=== PATIENT | female | born 1970 | race Caucasian/White ===

== ENCOUNTER → 2021-12-05 07:50 | Outpatient (CLI) | payer OTHER, SELFPAY ==
--- NOTE | 2021-12-05 07:56 | DI.ECHO.S_ITS ---
[facility] +---------+ : : [address] : [address] [place] : : : : [id number] : : : : Phone: [phone]+ Echocardiogram Report + + :Name: GER ALLEN Study Date: 12/05/2021 Height: 71.5 in: :[facility] ReadingLocation: Weight: 450 lb : : Gender: Female BSA: 3.0 m2 : :: 1970 Age: 51 yrs : :Reason For Study: SOB : :Ordering Physician: : :NOEL Performed By: Justino Morley : :Referring: ZAINAB QUIJANO : + + Interpretation Summary The ejection fraction is estimated to be 55-60%. Diastolic parameters suggest probable normal left ventricular diastolic function and normal filling pressures. The right ventricle is normal in size and function. No significant valvular abnormalities. Unable to estimate PASP. Procedure: A two-dimensional transthoracic echocardiogram with color flow and Doppler was performed. The study quality was technically difficult. The subcostal views were not obtained due to no window. The apical views were difficult to obtain and are suboptimal in quality. There is no prior echocardiogram noted for this patient. A contrast injection of Definity was performed to improve assessment of LV function. The patient was in normal sinus rhythm during the exam. Left Ventricle: The left ventricle is normal in size and wall thickness. The ejection fraction is estimated to be 55-60%. Diastolic parameters suggest probable normal left ventricular diastolic function and normal filling pressures. Right Ventricle: The right ventricle is normal in size and function. Atria: The left atrium is not well visualized. The left atrium grossly appears normal in size. Right atrium not well visualized. Mitral Valve: The mitral valve is normal. There is trace mitral regurgitation. Aortic Valve: The aortic valve opens well. There is no aortic valve stenosis. No aortic regurgitation is present. Tricuspid Valve: The tricuspid valve is not well visualized, but is grossly normal. There is a trace or physiologic amount of tricuspid regurgitation. Pulmonary artery pressures cannot be estimated because of the lack of a measurable TR jet velocity. Pulmonic Valve: The pulmonic valve is not well seen, but is grossly normal. There is a trace or physiologic amount of pulmonic regurgitation. Great Vessels: The aortic root is normal size. The ascending aorta is normal in size. The aortic arch is normal in size. The inferior vena cava was not visualized. Pericardium/ Pleura There is no pericardial effusion. There is an anterior echo-free space consistent with a fat pad. There is no pleural effusion. MMode/2D Measurements & Calculations LVIDd: 4.8 cm LVOT diam: 2.1 cm LVIDs: 3.7 cm Ao root diam: 3.2 cm FS: 22.9 % asc Aorta Diam: 3.4 cm IVSd: 0.90 cm Ao Arch Diam (Prox Trans): 2.7 cm LVPWd: 1.0 cm LV lou. diameter/BSA (cm/m^2): 1.6 LV sys. diameter/BSA (cm/m^2): 1.2 LA A2 area: 14.7 cm2 RA long axis: 4.4 cm LA A4 area: 21.2 cm2 RA area: 8.9 cm2 LA length (vol): 5.0 cm RA vol: 15.5 ml LA vol: 52.8 ml RA : 5.2 ml/m2 LA vol index: 17.6 ml/m2 LVLs ap4: 6.8 cm LVLd ap2: 9.2 cm LVLs ap2: 6.7 cm TAPSE_phl: 2.0 cm Doppler Measurements & Calculations Ao V2 max: 168.3 cm/sec LVOT Max Ezio: 112.0 cm/sec Ao V2 mean: 122.6 cm/sec LV V1 max P.0 mmHg Ao max P.3 mmHg LV V1 VTI: 20.9 cm Ao mean P.4 mmHg ROSA(I,D): 2.4 cm2 Ao V2 VTI: 29.8 cm ROSA(V,D): 2.3 cm2 sev ratio: 0.70 ROSA indexed to BSA (cm^2/m^2): 0.81 MV E max ezio: 69.8 cm/sec SV(LVOT): 72.5 ml MV A max ezio: 66.5 cm/sec MV E/A: 1.1 Med Peak E' Ezio: 8.3 cm/sec E/E' med: 8.4 Lat Peak E' Ezio: 10.1 cm/sec E/E' lat: 6.9 E/e' average: 7.7 dec time: 0.18 sec Reading Physician:11:38 AM
--- NOTE | 2021-12-05 08:00 | DI.CT.S_ITS ---
PROCEDURE: CT CHEST WO CON INDICATIONS: SHORTNESS OF BREATH TECHNIQUE: Noncontrast 5 mm thick sections acquired from the pulmonary apices to the posterior costophrenic angles. 1 mm lung window, 5 mm thick coronal and sagittal and 7 mm axial MIP reformats were then acquired. For radiation dose reduction, the following was used: automated exposure control, adjustment of mA and/or kV according to patient size. COMPARISON: None. FINDINGS: Image quality: Good. Slightly degraded by respiratory motion. Lungs and pleura: No acute air space opacities. There are no suspicious nodules. There is a cluster of three calcified lung nodules along the right diaphragmatic surface, in total measuring about 1.0 cm. No pleural effusions or pneumothorax. Central and peripheral airways are patent and normal in caliber. Mediastinum: Heart size is normal. No pericardial effusion. There are nonenlarged calcified right hilar and subcarinal lymph nodes. No suspicious mediastinal or hilar adenopathy. No anterior or posterior mediastinal masses. Thoracic aorta and central pulmonary arteries are normal in size. Esophagus is normal in caliber. No hiatal hernia. Bones and chest wall: No suspicious bony lesions. No vertebral body compression fractures. No axillary or supraclavicular adenopathy by size criteria. Thyroid gland is normal . Abdomen: Visible portion of the upper abdomen demonstrates significant hepatic steatosis. No other abnormalities seen. IMPRESSION: 1. No acute process. 2. Evidence of remote exposure to, and healing of, granulomatous disease. 3. Marked hepatic steatosis. Dictated by: Sonia Montgomery M.D. on 12/05/2021 at 9:20 Approved by: Sonia Montgomery M.D. on 12/05/2021 at 9:25
--- NOTE | 2021-12-05 09:16 | DI.RAD.S_ITS ---
PROCEDURE: XR FOOT RT 2V INDICATIONS: FOOT PAIN TECHNIQUE: 2 views of the foot were acquired. COMPARISON: None. FINDINGS: Bones: No fractures or dislocations. No suspicious bony lesions. Small plantar calcaneal enthesophyte is seen. Mild osteoarthritic changes are noted in midfoot joints. Soft tissues: No tibiotalar joint effusion. Achilles tendon appears normal. Linear radiodensity in subcutaneous soft tissue over lateral and plantar aspect of right forefoot is seen at the level of distal 5th metatarsal shaft/neck. IMPRESSION: Mild midfoot joint osteoarthritis. No fracture or dislocation. Small plantar calcaneal enthesophyte. Small soft tissue density as above which could represent a tiny foreign body, suggest clinical correlation. Dictated by: Sancho Hampton M.D. on 12/05/2021 at 10:48 Approved by: Sancho Hampton M.D. on 12/05/2021 at 10:49
== END ==
PROVIDERS: PCP Physician Assistant; Referring Provider Physician Assistant; Visit Provider Physician Assistant
DX: R06.02 Shortness of breath (principal); J98.4 Other disorders of lung; K76.0 Fatty (change of) liver, not elsewhere classified; M19.071 Primary osteoarthritis, right ankle and foot; M77.31 Calcaneal spur, right foot; M79.671 Pain in right foot
CPT/HCPCS: 71250; 73620; 93306; Q9957

== ENCOUNTER → 2023-02-05 13:02 | Outpatient (CLI) | payer OTHER, SELFPAY ==
[2023-02-06 21:20] LABS: Urine N gonorrhoeae NOT DETECTED
[2023-02-06 21:31] LABS: Urine Chlamydia NOT DETECTED
== END ==
PROVIDERS: PCP Physician Assistant; Visit Provider Nurse Practitioner Family
DX: R30.0 Dysuria (principal)
CPT/HCPCS: 87077; 87086; 87186; 87210; 87491; 87591

== ENCOUNTER → 2023-04-08 13:20 | Outpatient (CLI) | payer OTHER, SELFPAY ==
--- NOTE | 2023-04-08 13:21 | DI.CT.S_ITS ---
PROCEDURE: CT ABDOMEN PELVIS WO/W CON INDICATIONS: Recurring urinary tract infections history of abdominal surg TECHNIQUE: Optional 5 mm thick noncontrast images acquired from the diaphragm to the symphysis pubis. After the administration of intravenous contrast, 5 mm thick images acquired from the diaphragm to the symphysis pubis after a 10-minute delay. 2 mm thick coronal and sagittal reformats were then performed of the kidneys and ureters. For radiation dose reduction, the following was used: automated exposure control, adjustment of mA and/or kV according to patient size. COMPARISON: None. FINDINGS: Image quality: Excellent. Lung bases: Calcified right lower lobe pulmonary nodule. Lung bases are otherwise clear. Heart size is normal. Urinary system: Both kidneys are normal in size, without hydronephrosis or nephrolithiasis on pre-contrast images. No perinephric fat stranding. There is normal bilateral renal enhancement. Renal calyces appear normal in morphology when filled with contrast. Opacified portions of both ureters demonstrate normal caliber. Bladder wall thickness is normal. No calcified bladder stones. Nonenhancing fluid attenuation posterior left renal hypodensity compatible with a cyst. This measures approximately 2 cm in diameter. Other solid organs: Mild hepatomegaly. No focal intrahepatic lesions. Gallbladder is surgically absent. Biliary system is non dilated. Pancreas enhances normally. Spleen is normal in size and enhancement. No adrenal nodules. Peritoneum and bowel: Scattered colonic diverticulosis. No acute diverticulitis. No free fluid or air. 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 Nodes and vessels: No retroperitoneal or mesenteric adenopathy by size criteria. Aorta and inferior vena cava are normal in size. Abdominal wall: There is a large right anterior abdominal wall ventral hernia and containing loops of nondilated small bowel. No evidence for bowel obstruction proximally. No acute inflammatory changes. No abnormal fluid collection within the hernia sac. Pelvis: No pathologic free pelvic fluid. No inguinal hernias. No pelvic adenopathy. Bones: No suspicious bony lesions. No acute vertebral body compression fractures. Status post right total hip arthroplasty. IMPRESSION: 1. No evidence for obstructive uropathy or urolithiasis. 2. Mild hepatomegaly. 3. Colonic diverticulosis without acute diverticulitis. 4. Large right anterior abdominal wall ventral hernia containing loops of small bowel. No evidence for obstruction or acute inflammatory changes. 5. A 2 cm posterior left renal hypodensity likely representing a cyst. Other chronic findings as above. Dictated by: Enrique Cruz M.D. on 04/08/2023 at 14:20 Approved by: Enrique Cruz M.D. on 04/08/2023 at 14:31
== END ==
PROVIDERS: PCP Physician Assistant; Referring Provider Urology; Visit Provider Urology
DX: N39.0 Urinary tract infection, site not specified (principal); R91.8 Other nonspecific abnormal finding of lung field; R16.0 Hepatomegaly, not elsewhere classified; K57.90 Diverticulosis of intestine, part unspecified, without perforation or abscess without bleeding; Z87.442 Personal history of urinary calculi; K43.9 Ventral hernia without obstruction or gangrene
CPT/HCPCS: 74178; Q9967

== ENCOUNTER → 2024-01-18 13:15 | Outpatient (CLI) | payer OTHER, SELFPAY ==
--- NOTE | 2024-01-18 13:16 | DI.CT.S_ITS ---
PROCEDURE: CT LE RT WO CON INDICATIONS: Other specified disorders of bone, thigh TECHNIQUE: Noncontrast 3 mm axial sections acquired of the right thigh, with coronal and sagittal reformats. COMPARISON: [facility] [place], CR, XR KNEE 4+ VIEWS BILATERAL, 10/13/2023, 10:19. [facility] [place], CR, XR PELVIS WITH LATERAL HIP RIGHT, 10/13/2023, 10:36. FINDINGS: Image quality: Excellent. Bones: Patient is status post right total hip arthroplasty with significant beam hardening artifacts. No evidence of gross hardware loosening or failure is seen. No acute periprosthetic fracture. Osteoarthritic changes are noted involving symphysis pubis and visualized portion of right sacroiliac joint. There is no femoral fracture or dislocation. No abnormal periosteal reaction or cortical erosion. Moderate tricompartmental osteoarthritis in right knee is seen. No suspicious bony lesions. Soft tissues: There is no significant joint effusion or calcified intra-articular loose bodies. No soft tissue mass or drainable fluid collection. No abnormal intramuscular density is seen. No significant right knee joint effusion is noted. IMPRESSION: 1. Prior right total hip arthroplasty with anatomic alignment mint of right hip. No acute fracture or dislocation. No acute periprosthetic fracture. No evidence of hardware loosening or failure. 2. [id number] osteoarthritic changes in right hemipelvis. Moderate tricompartmental osteoarthritis in right knee. No suspicious bony lesions. 3. No gross right thigh soft tissue abnormalities. No soft tissue hematoma or mass. No intramuscular mass or fluid collection. Dictated by: Sancho Hampton M.D. on 01/19/2024 at 10:22 Approved by: Sancho Hampton M.D. on 01/19/2024 at 10:30
== END ==
PROVIDERS: PCP Nurse Practitioner Family; Referring Provider Orthopaedic Surgery Foot and Ankle Surgery; Visit Provider Orthopaedic Surgery Foot and Ankle Surgery
DX: M89.8X5 Other specified disorders of bone, thigh (principal); M17.11 Unilateral primary osteoarthritis, right knee; Z96.641 Presence of right artificial hip joint
CPT/HCPCS: 73700

== ENCOUNTER 2024-06-08 11:57 | Day surgery (SDC) | payer OTHER, SELFPAY ==
[2024-06-07 12:34] VITALS: BMI 54.6
[2024-06-08] VITALS (12 sets, daily range): BP systolic 118–164; BP diastolic 49–99; PULSE 78–96; RESP 12–21; TEMP 36.2–36.4; O2SAT 94–100; BMI 54.6
[2024-06-08] MEDS: ACETAMINOPHEN 325 MG TABLET 975 MG PO (12:28)
[2024-06-08] MEDS: LACTATED RINGERS 1,000 ML 42 ML IV ×2 (12:30→15:43)
--- NOTE | 2024-06-08 13:35 | PM.PREOP ---
Pre-operative Note Interval Note History & Physical reviewed/Exam performed by Physician: Yes Changes to H&P: No
[2024-06-08] MEDS: CEFAZOLIN VIAL 3 GM in SODIUM CHLORIDE 0.9% 100 ML IV (14:07)
--- NOTE | 2024-06-08 14:34 | SUR.OPER ---
Left Lateral on a dee bag, head on pillow, gel axillary roll in place, bottom leg bent with gel pad under knee to foot, upper leg straight and supported with pillows. Upper arm supported by pillows and secured over bottom arm to padded arm board. Safety belt at hip, tape over blanket lower legs.
[2024-06-08] MEDS: BUPIVACAINE 0.25% (PF) 30 ML, EPINEPHrine 0.15 MG INJ (14:42)
[2024-06-08] MEDS: KETOROLAC 30 MG/ML VIAL IV (15:41)
[2024-06-08] MEDS: hydrOXYzine 50 MG/ML INJ 25 MG IM (15:44)
[2024-06-08] MEDS: OXYCODONE IR 5 MG TABLET PO ×2 (15:44→16:15)
[2024-06-08] MEDS: ONDANSETRON 4 MG/2 ML INJ IV (15:44)
[2024-06-08] MEDS: HYDROMORPHONE 1 MG INJ IV ×2 (15:45→15:50)
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
[2024-06-08] MEDS: METOCLOPRAMIDE 10 MG/2 ML INJ IV (16:05)
[2024-07-11 15:54] VITALS: BMI 54.9
== END 2024-06-08 16:31 | disposition home or self-care (01) ==
PROVIDERS: PCP Nurse Practitioner Family; Referring Provider Orthopaedic Surgery Foot and Ankle Surgery; Visit Provider Orthopaedic Surgery Foot and Ankle Surgery
PROC: (CPT 27698; principal; 2024-06-08 13:45)
DX: S93.491A Sprain of other ligament of right ankle, initial encounter (principal); G89.18 Other acute postprocedural pain; E66.01 Morbid (severe) obesity due to excess calories; Z68.43 Body mass index [BMI] 50.0-59.9, adult; V79.50XA Passenger on bus injured in collision with unspecified motor vehicles in traffic accident, initial encounter; Y92.410 Unspecified street and highway as the place of occurrence of the external cause
CPT/HCPCS: 27698; 64450; C1713; J0171; J0690; J1100; J1170; J1885; J2250; J2405; J2704; J2765; J3010; J3410

== ENCOUNTER 2024-07-13 13:50 | Day surgery (SDC) | payer OTHER, SELFPAY ==
[2024-07-13] VITALS (8 sets, daily range): BP systolic 140–161; BP diastolic 68–101; PULSE 73–90; RESP 12–18; TEMP 36.4–37.6; O2SAT 94–98; BMI 55.3
[2024-07-13] MEDS: LACTATED RINGERS 1,000 ML 42 ML IV (14:39)
--- NOTE | 2024-07-13 15:00 | PM.PREOP ---
Pre-operative Note Interval Note History & Physical reviewed/Exam performed by Physician: Yes Changes to H&P: No
[2024-07-13] MEDS: CEFAZOLIN 2 GM/100 ML PREMIX 100 ML IV (15:42)
--- NOTE | 2024-07-13 15:48 | SUR.OPER ---
Supine on padded OR bed, head on pillow, arms secured on padded arm boards at <90 degrees abduction, legs uncrossed, safety belt at thigh, tape over blanket over lower legs.
[2024-07-13] MEDS: VANCOMYCIN 1,000 MG VIAL 1000 MG TOP (15:54)
[2024-07-13] MEDS: BUPIVACAINE 0.25% (PF) 30 ML, EPINEPHrine 0.15 MG INJ (15:55)
[2024-07-13] MEDS: CEFAZOLIN VIAL 1 GM in SODIUM CHLORIDE 0.9% 100 ML IV (16:00)
--- NOTE | 2024-07-13 16:41 | PM.OP.1 ---
Operative Date/Time/Diagnoses Date of procedure: 07/13/24 Time of procedure: 15:30 Pre-op diagnosis: Surgical wound dehiscence right ankle, BMI 54.9 Post-op diagnosis: same Procedure & Clinicians Procedure: Excisional debridement surgical wound dehiscence skin subcutaneous tissue [id number], right Modifier 78 Same procedure as scheduled: Yes Indications: The patient is a 54-year-old female that underwent a lateral ankle ligamentous stabilization for ankle instability on 06/08/2024. She is just started back to work and noted some drainage redness and increasing pain and her surgery site. She was noted to have surgical wound dehiscence and indicated for excisional debridement. The risks and benefits of the procedure have been discussed with the patient and given the opportunity to ask questions. The risks of surgery include but are not limited to infection, persistence of pain, damage to nerves and blood vessels, DVT, PE, cardiopulmonary complications and . The patient expressed a thorough understanding of the risks and benefits of surgery and has elected to proceed. Consent was signed i Surgeon: Shivani Astorga Click Yes if Unassisted: Yes Anesthesia Type: General and Local Operative Notes Findings: Surgical wound dehiscence with fibrinous exudate. No gross purulence. Periwound erythema no ascending cellulitis. No deep fascial violation. Closure Type: primary Specimen(s): other (Culture sent for Gram stain aerobic and anaerobic) Estimated Blood Loss (mL): 5 Blood products transfused: none Tourniquet time (min): 0 Procedure in detail: Patient was seen in the preoperative area the site of surgery was marked informed consent confirmed. This was the right ankle and it was marked. She was brought back to the operating room by the anesthesia team positioned supine on operative table. Anesthetic was administered. The right lower extremity was prepped and draped in the standard sterile fashion a formal time-out procedure was performed confirming the patient's side and site of surgery administration of appropriate preoperative weight based antibiotics. All were in agreement. Attention was turned to the right lower extremity. No tourniquet was utilized. There was dehiscence and fibrinous exudate approximately 5 cm long at the lateral incision. An excisional debridement then proceeded a scalpel was used to excising the wound including wound edges and fibrinous exudate at the level of the wound dehiscence this included the skin and subcutaneous tissue. After this was removed deep cultures were taken. There was no purulence noted. The wound was thoroughly irrigated with bulb syringe saline. And then vancomycin powder applied to the wound. Following this the wound was closed with 4-0 Monocryl and 3-0 nylon suture. 3-0 nylon was placed in a vertical mattress fashion and Dermabond was placed to further seal the wound. Once the Dermabond was dry 20 cc of 0.25% Marcaine with epinephrine was injected local anesthetic. And a sterile dressing was applied with Xeroform gauze Webril and an Reyes wrap. The patient was woken from anesthesia and taken to the recovery room in good condition. Counts were correct. Complications: none Post-operative Condition: stable Disposition: PACU Plan for aftercare: Weightbear as tolerated in boot. May come out of boot for gentle ankle range of motion. Follow up patient is standard lateral ankle ligament reconstruction protocol. We will have 1 week of antibiotics take orally. We will follow up in [facility]opedic [facility] as scheduled in 2-3 weeks for suture removal.
[2024-07-13] MEDS: OXYCODONE IR 5 MG TABLET PO ×2 (16:49→17:20)
[2024-07-13] MEDS: CELECOXIB 200 MG CAPSULE PO (17:19)
[2024-07-13] MEDS: ACETAMINOPHEN 325 MG TABLET 975 MG PO (17:19)
== END 2024-07-13 17:47 | disposition home or self-care (01) ==
PROVIDERS: PCP Nurse Practitioner Family; Referring Provider Orthopaedic Surgery Foot and Ankle Surgery; Visit Provider Orthopaedic Surgery Foot and Ankle Surgery
PROC: (CPT 13160; principal; 2024-07-13 15:45)
DX: T81.31XA Disruption of external operation (surgical) wound, not elsewhere classified, initial encounter (principal); M25.871 Other specified joint disorders, right ankle and foot; M17.12 Unilateral primary osteoarthritis, left knee; E66.9 Obesity, unspecified; Z68.43 Body mass index [BMI] 50.0-59.9, adult
CPT/HCPCS: 13160; 87070; 87075; 87205; J0171; J0330; J0690; J2250; J2405; J2704; J3010

== ENCOUNTER 2025-02-14 22:12 | Observation (INO) | payer OTHER, SELFPAY ==
[2025-02-14 22:18] VITALS: BP 170/78; PULSE 65; RESP 18; TEMP 36.8; O2SAT 99; BMI 49.6
--- NOTE | 2025-02-14 22:33 | EKG_ITS ---
[address] [id number] Test Date: 2025-02-14 Pat Name: Ameena Cuevas Department: [facility] Room: Gender: Female Clinical Services Specialist: : 1970 Requested By: Order Number: [id number] Reading MD: Tod Perez Measurements Intervals Saxis Rate: 55 P: 69 VA: 166 QRS: 45 QRSD: 108 T: 39 QT: 414 QTc: 396 Interpretive Statements Sinus bradycardia Electronically Signed On 02-15-2025 17:40:02 PDT by Tod Perez
[2025-02-14 23:06] LABS: Alanine Aminotransferase 27 IU/L (<35); Albumin 4.2 g/dL (3.5-5.0); Albumin Globulin Ratio 1.3 (1.0-2.8); Alkaline Phosphatase 92 U/L (38-126); Aspartate Aminotransferase 29 IU/L (14-36); BUN Creatinine Ratio 27.6 (6-22); Bilirubin Total 0.4 mg/dL (0.2-1.3); Blood Urea Nitrogen 21 mg/dL (7-17); Calcium 9.3 mg/dL (8.4-10.2); Carbon Dioxide 23 mmol/L (22-32); Chloride 106 mmol/L (98-107); Estimated Glomerular Filt Rate > 60 mL/min (>60); Globulin 3.2 g/dL (1.7-4.1); Glucose 114 mg/dL (70-99); HEMOLYSIS < 15 (0-50); Lipase 102 U/L (23-300); Potassium 3.6 mmol/L (3.4-5.1); Sodium 138 mmol/L (137-145); Total Protein 7.4 g/dL (6.3-8.2)
[2025-02-14 23:46] LABS: Add Manual Diff / Slide Review NO; Basophils Absolute Auto 100 /uL (0-100); Basophils Percent Auto 0.9 % (0-2); Eosinophils Absolute Auto 200 /uL (0-450); Eosinophils Percent Auto 1.4 % (2-4); Hematocrit 44.5 % (36-46); Lymphocytes Absolute Auto 2000 /uL (1100-4500); Lymphocytes Percent Auto 13.4 % (25-40); Mean Corpuscular HGB Conc 33.7 % (30-36); Mean Corpuscular Hemoglobin 31.4 PG (26-34); Mean Corpuscular Volume 93.2 fL (80-100); Monocytes Absolute Auto 900 /uL (0-900); Monocytes Percent Auto 5.9 % (3-14); Neutrophils Absolute Auto 11600 /uL (1500-7000); Neutrophils Percent Auto 78.4 % (50-75); Platelet Count 259 X10^3/uL (150-400); Red Blood Cell Count 4.78 X10^6/uL (4.0-5.2); Red Cell Distribution Width 14.3 % (11.6-14.8); White Blood Cell Count 14.8 X10^3/uL (4.5-11.0)
[2025-02-14] MEDS: METOCLOPRAMIDE 10 MG/2 ML INJ IV (23:48)
[2025-02-14] MEDS: HYDROMORPHONE 0.5 MG INJ IV (23:48)
[2025-02-15] VITALS (24 sets, daily range): BP systolic 128–204; BP diastolic 56–105; PULSE 48–100; RESP 16–20; TEMP 36.4–36.9; O2SAT 92–100; BMI 49.6
--- NOTE | 2025-02-15 00:45 | DI.CT.S_ITS ---
PROCEDURE: CT ABDOMEN PELVIS W CON INDICATIONS: abd pain TECHNIQUE: After the administration of intravenous contrast, axial sections acquired from the lung bases to the pubic symphysis. Coronal and sagittal reformats were performed. For radiation dose reduction, the following was used: automated exposure control, adjustment of mA and/or kV according to patient size. COMPARISON: None. FINDINGS: Image quality: Diagnostic. Lower Chest: Small calcified lymph nodes at the right hilar region and subcarinal. ABDOMEN: Liver: No solid mass. Gallbladder: Absent. Biliary ducts: No biliary dilation. Pancreas: No ductal dilation. Spleen: Size is within normal limits. Adrenal Glands: No adrenal nodules. Kidneys and Ureters: No hydronephrosis. No solid mass. No complex renal cystic lesion which requires follow up. Stomach and Bowel: Normal colonic caliber, without significant wall thickening. No diverticulitis. The appendix is not seen. Gastric sleeve. There is mild stranding within the fat within the right hernia sac, (6/112). Peritoneum: No abnormal intraperitoneal fluid. No free air. Ventral Wall: Large right abdominal wall hernia. Abdominal Nodes: No retroperitoneal or mesenteric adenopathy by size criteria. Vessels: Aorta and inferior vena cava are normal in size. PELVIS: Pelvic Organs: Anteverted uterus. Bladder: No bladder wall thickening, accounting for underdistention. Pelvic Nodes: No enlarged lymph nodes. Miscellaneous: No inguinal hernias are seen. Bones: No aggressive osseous abnormality. Right hip arthroplasty. IMPRESSION: Large right abdominal wall hernia is similar in size. There is mild stranding in the fat within the hernia sac. Nonspecific but could be due to edema or inflammation or intermittent herniated fat strangulation. No small bowel obstruction. No fluid collection or pneumoperitoneum. Dictated by: Marcus Thomson M.D. on 02/15/2025 at 2:32 Approved by: Marcus Thomson M.D. on 02/15/2025 at 2:46
[2025-02-15] MEDS: HYDROMORPHONE 0.5 MG INJ IV (00:56)
--- NOTE | 2025-02-15 01:09 | ED.ABDPAIN ---
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 She has extensive surgical abdominal surgical history with 2 prior C-sections, appendectomy, ventral hernia repair with mesh failure and revision, cholecystectomy, lap band placement and then removal, ventral sleeve gastrectomy at [facility] which was her last surgical intervention (Dr. Palacios was in September 2023). She recalls small-bowel obstruction 3 years ago managed by NG tube medical management without surgical intervention. She has nausea and vomiting nonbloody at increasing central then generalized abdominal pain since this afternoon, concerned that she may have recurrence of bowel obstruction. Related Data Home Medications Medication Instructions Recorded Confirmed bupropion HCl 300 mg 24 hr tablet, 300 mg PO QAM 02/05/23 02/15/25 extended release celecoxib 200 mg capsule (Celebrex) 200 mg PO DAILY 02/05/23 02/15/25 gabapentin 600 mg tablet 600 mg PO BEDTIME 02/05/23 02/15/25 levothyroxine 125 mcg capsule 200 mcg PO DAILY 02/05/23 02/15/25 trazodone 150 mg tablet 150 mg PO DAILY 02/05/23 02/15/25 venlafaxine 225 mg tablet,extended 225 mg PO DAILY 02/05/23 02/15/25 release 24 hr buspirone 10 mg tablet 7.5 mg PO BID 06/08/24 02/15/25 methylphenidate HCl 18 mg 18 mg PO QAM 06/08/24 02/15/25 tablet,extended release 24 hr naltrexone 50 mg tablet 50 mg PO DAILY 06/08/24 02/15/25 rosuvastatin 5 mg tablet 5 mg PO DAILY 06/08/24 02/15/25 fexofenadine 60 mg tablet 60 mg PO BID 07/11/24 02/15/25 omeprazole 20 mg capsule,delayed 20 mg PO DAILY 02/15/25 02/15/25 release trazodone 150 mg tablet 150 mg PO ONCE PM 02/15/25 02/15/25 venlafaxine 150 mg 150 mg PO DAILY 02/15/25 02/15/25 capsule,extended release 24 hr Previous Rx's Medication Instructions Recorded amoxicillin 875 mg-potassium 1 tab PO BID 7 days #14 tabs 02/15/25 clavulanate 125 mg tablet Allergies Allergy/AdvReac Type Severity Reaction Status Date / Time morphine Allergy Mild Hallucinati Verified 07/13/24 14:11 ng Patient History Medical History (Updated 02/15/25 @ 09:17 by Elizabeth Lopez RN) Sleep apnea BMI 50.0-59.9, adult Incomplete emptying of bladder Recurrent urinary tract infection History of post traumatic stress disorder Hx of thyroid disease Hx of osteoarthritis History of kidney stones Family history of depression History of chronic urinary tract infection History of arthritis Surgical History (Updated 07/11/24 @ 16:00 by Nellie Jackson RN) History of ankle surgery (06/08/24) Hx of arthroscopic knee surgery Hx of laparoscopic gastric banding Hx of section Hx of laparoscopy History of hip replacement Hx of hernia repair Hx of lithotripsy Hx of cholecystectomy Hx of appendectomy Family History Father Cancer Hearing impairment Hyperlipidemia Hypertension Mother Cancer Hearing impairment Hyperlipidemia Hypertension Thyroid disorder Social History marital status: number of children: 2 household members: family occupational status: employed Smoking Status: Current every day smoker alcohol intake: current caffeine: Yes Type(s) of exercise: other Smoking Status: Current every day smoker tobacco type: vaping alcohol intake frequency: holidays/special occasions only Exam Narrative Exam Narrative: GENERAL: Well-developed patient, in abdominal distress prefers sitting upright position on rstacy. HEAD: Atraumatic. Normocephalic. EYES: Pupils equal round and reactive. Extraocular motions intact. No scleral icterus. No injection or drainage. ENT: Nose without bleeding, purulent drainage. Throat without erythema, tonsillar hypertrophy or exudate. Airway patent. NECK: Trachea midline. Non tender CARDIOVASCULAR: Regular rate and rhythm without murmurs, gallops, or rubs. RESPIRATORY: Clear to auscultation. Breath sounds equal bilaterally. No wheezes, rales, or rhonchi. GASTROINTESTINAL: Obese, generalized tenderness, nonrigid. EXTREMITIES: No edema or joint tenderness. BACK: Nontender without deformity or crepitance. No flank tenderness. NEURO: AOx3. Motor functions grossly nonfocal SKIN: No rash or erythema of visible areas Initial Vital Signs Initial Vital Signs: Vital Signs Temperature 98.3 F 02/14/25 22:18 Pulse Rate 65 02/14/25 22:18 Respiratory Rate 18 02/14/25 22:18 Blood Pressure 170/78 H 02/14/25 22:18 Pulse Oximetry 99 02/14/25 22:18 Oxygen Delivery Method Room Air 02/14/25 22:18 Course Orders Ordered: Discontinued Medications Acetaminophen (Acetaminophen 325 Mg Tablet) 650 mg PO Q6H PRN PRN Reason: Fever/Mild Pain (1-3) Hydrocodone Bitart/Acetaminophen (Hydrocodone/Acet 5/325 Tablet) 1 tab PO Q4H PRN PRN Reason: Pain, Moderate (4-6) Atorvastatin Calcium (Atorvastatin 20 Mg Tablet) 10 mg PO DAILY [facility] Last Admin: 02/15/25 10:18 Dose: Not Given Documented By: SB Atorvastatin Calcium (Atorvastatin 20 Mg Tablet) 10 mg PO BEDTIME [facility] Bupropion HCl (Bupropion Xl 150 Mg Tab) 300 mg PO DAILY [facility] Last Admin: 02/15/25 09:41 Dose: 300 mg Documented By: SB Droperidol (Droperidol 2.5 Mg/Ml Vial) 1.25 mg IV NOW ONE Stop: 02/15/25 01:14 Last Admin: 02/15/25 01:31 Dose: 1.25 mg Documented By: CT Droperidol (Droperidol 2.5 Mg/Ml Vial) 1.25 mg IV NOW ONE Stop: 02/15/25 02:30 Last Admin: 02/15/25 05:05 Dose: Not Given Documented By: RLC Gabapentin (Gabapentin 600 Mg Tablet) 600 mg PO BEDTIME [facility] Heparin Sodium (Porcine) (Heparin 5,000 Unit/Ml Vial) 5,000 unit SUBCUT BID [facility] Last Admin: 02/15/25 09:41 Dose: 5,000 unit Documented By: SB Hydromorphone HCl (Hydromorphone 0.5 Mg Inj) 0.5 mg IV NOW ONE Stop: 02/14/25 23:42 Last Admin: 02/14/25 23:48 Dose: 0.5 mg Documented By: CT Hydromorphone HCl (Hydromorphone 0.5 Mg Inj) 0.5 mg IV NOW ONE Stop: 02/15/25 00:50 Last Admin: 02/15/25 00:56 Dose: 0.5 mg Documented By: CT Hydromorphone HCl (Hydromorphone 0.5 Mg Inj) 0.5 mg IV Q1H PRN PRN Reason: Pain, Severe (7-10) Hydromorphone HCl (Hydromorphone 0.5 Mg Inj) 0.5 mg IV Q2H PRN PRN Reason: Pain, Severe (7-10) Lactated Ringer's (Lactated Ringers) 1,000 mls @ 1,000 mls/hr IV BOLUS ONE Stop: 02/15/25 04:00 Last Infusion: 02/15/25 04:05 Dose: Infused Documented By: Admin: 02/15/25 03:05 Dose: 1,000 mls/hr Documented By: RLJesus Piperacillin Sod/Tazobactam (Sod 4.5 gm/ Sodium Chloride) 100 mls @ 200 mls/hr IV NOW ONE Stop: 02/15/25 03:15 Last Infusion: 02/15/25 06:34 Dose: Infused Documented By: Admin: 02/15/25 05:10 Dose: 200 mls/hr Documented By: CT Sodium Chloride (Normal Saline 0.9%) 1,000 mls @ 100 mls/hr IV CONT MYA Last Admin: 02/15/25 09:40 Dose: 100 mls/hr Documented By: Infusion: 02/15/25 09:40 Dose: Infused Documented By: Admin: 02/15/25 06:40 Dose: 100 mls/hr Documented By: CT Piperacillin Sod/Tazobactam (Sod 3.375 gm/ Sodium Chloride) 100 mls @ 25 mls/hr IV Q8H MYA Last Admin: 02/15/25 04:59 Dose: Not Given Documented By: RLC Piperacillin Sod/Tazobactam (Sod 3.375 gm/ Sodium Chloride) 100 mls @ 25 mls/hr IV Q8H MYA Piperacillin Sod/Tazobactam (Sod 3.375 gm/ Sodium Chloride) 100 mls @ 25 mls/hr IV Q8H MYA Last Infusion: 02/15/25 13:50 Dose: Infused Documented By: Admin: 02/15/25 09:35 Dose: 25 mls/hr Documented By: SB Levothyroxine Sodium (Levothyroxine 125 Mcg Tablet) 250 mcg PO 0600 [facility] Last Admin: 02/15/25 06:42 Dose: 250 mcg Documented By: CT Metoclopramide HCl (Metoclopramide 10 Mg/2 Ml Inj) 10 mg IV NOW ONE Stop: 02/14/25 23:25 Last Admin: 02/14/25 23:48 Dose: 10 mg Documented By: CT Naloxone HCl (Naloxone 0.4 Mg/Ml Vial) 0.2 mg IV Q2MIN PRN PRN Reason: Opiate Reversal Ondansetron HCl (Ondansetron 4 Mg/2 Ml Inj) 4 mg IV NOW PRN PRN Reason: Nausea And Vomiting Ondansetron HCl (Ondansetron 4 Mg Odt) 4 mg PO NOW PRN PRN Reason: Nausea And Vomiting Ondansetron HCl (Ondansetron 4 Mg/2 Ml Inj) 4 mg IV Q8HR PRN PRN Reason: Nausea And Vomiting Promethazine HCl (Promethazine 25 Mg Tablet) 12.5 mg PO NOW ONE Stop: 02/14/25 23:44 Last Admin: 02/15/25 00:33 Dose: Not Given Documented By: CT Trazodone HCl (Trazodone 50 Mg Tablet) 150 mg PO DAILY [facility] Last Admin: 02/15/25 10:19 Dose: Not Given Documented By: SB Trazodone HCl (Trazodone 50 Mg Tablet) 150 mg PO BEDTIME [facility] Venlafaxine HCl (Venlafaxine Er 75 Mg Cap) 225 mg PO DAILY [facility] Last Admin: 02/15/25 09:40 Dose: 225 mg Documented By: GILBERTO Vital Signs Vital signs: Vital Signs - 8 hr 02/14/25 22:18 02/15/25 00:38 02/15/25 00:39 Temperature 98.3 F Pulse Rate 65 56 L Respiratory Rate 18 Blood Pressure 170/78 H Pulse Oximetry 99 100 100 Oxygen Delivery Method Room Air 02/15/25 00:39 02/15/25 01:00 02/15/25 01:01 Temperature Pulse Rate 72 56 L Respiratory Rate Blood Pressure 188/84 H Pulse Oximetry 99 100 Oxygen Delivery Method 02/15/25 01:01 02/15/25 01:30 02/15/25 01:31 Temperature Pulse Rate 56 L Respiratory Rate Blood Pressure 190/95 H 185/81 H Pulse Oximetry 100 Oxygen Delivery Method 02/15/25 01:31 Temperature Pulse Rate 55 L Respiratory Rate Blood Pressure Pulse Oximetry 100 Oxygen Delivery Method MDM - Abdominal Pain Lab Data Lab results narrative: White blood cell count 05979, hemoglobin 15, platelets adequate. Glucose 114. BUN 21 with creatinine 0.76. Electrolytes unremarkable, serum CO2 23 normal. Liver functions and lipase normal. 02/15/25 07:54 02/15/25 07:54 Labs: Lab Results 02/14/25 02/14/25 02/15/25 Range/Units 22:40 23:25 02:12 WBC 14.8 H (4.5-11.0) X10^3/uL RBC 4.78 (4.0-5.2) X10^6/uL Hgb 15.0 (12.0-16.0) g/dL Hct 44.5 (36-46) % MCV 93.2 (80-100) fL MCH 31.4 (26-34) PG MCHC 33.7 (30-36) % RDW 14.3 (11.6-14.8) % Plt Count 259 (150-400) X10^3/uL Neut % (Auto) 78.4 H (50-75) % Lymph % (Auto) 13.4 L (25-40) % Duval % (Auto) 5.9 (3-14) % Eos % (Auto) 1.4 L (2-4) % Baso % (Auto) 0.9 (0-2) % Neut # (Auto) 76391 H (0389-3813) /uL Lymph # (Auto) 2000 (8559-1147) /uL Duval # (Auto) 900 (0-900) /uL Eos # (Auto) 200 (0-450) /uL Baso # (Auto) 100 (0-100) /uL Sodium 138 (137-145) mmol/L Potassium 3.6 (3.4-5.1) mmol/L Chloride 106 (98-107) mmol/L Carbon Dioxide 23 (22-32) mmol/L BUN 21 H (7-17) mg/dL Creatinine 0.76 (0.52-1.04) mg/dL Estimated GFR > 60 (>60) mL/min BUN/Creatinine Ratio 27.6 H (6-22) Glucose 114 H (70-99) mg/dL Lactate 2.6 H (0.7-2.1) mmol/L Calcium 9.3 (8.4-10.2) mg/dL Magnesium 1.7 (1.6-2.3) mg/dL Total Bilirubin 0.4 (0.2-1.3) mg/dL AST 29 (14-36) IU/L ALT 27 (<35) IU/L Alkaline Phosphatase 92 (38-126) U/L Total Protein 7.4 (6.3-8.2) g/dL Albumin 4.2 (3.5-5.0) g/dL Globulin 3.2 (1.7-4.1) g/dL Albumin/Globulin Ratio 1.3 (1.0-2.8) Lipase 102 (23-300) U/L ECG Data Attestation: I personally reviewed and interpreted this ECG as follows: Interpretation: Sinus bradycardia with rate of 55, no obvious ST segment elevation or depression changes. MO 166, QRS 108, QTC 396. 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 Palacios in September 2023, now with nausea and vomiting nonbloody increasing central than generalized abdominal pain. Afebrile, sirs screen negative. Screening labs pending. Analgesics and antiemetics given. X-ray series bowel pattern evaluation ordered, to see if early NG tube placement might be indicated, per patient preference. Labs show leukocytosis white count 89957, renal function adequate, liver functions and lipase normal. Urinalysis pending. EKG without obvious ischemic changes, QTC normal. Still having nausea and abdominal pain. Repeat Dilaudid dose. GFR favorable. CT abdomen and pelvis ordered. IV droperidol for persisting nausea. X-ray abdomen without obstructive pattern. See radiology report. CT requested. CT abdomen and pelvis initially read with impression: ?Large right ventral hernia containing loops of small bowel and colon. Limited evaluation of the small bowel and colon given the lack of oral contrast however there are inflammatory changes adjacent to the colon within the hernia sac. Findings are suspicious for acute cholecystitis or possible appendicitis. Surgical consultation advised.. Real avionic technician relaying this report was informed that the patient has had prior gallbladder surgery removal, and prior appendectomy. Subsequently there was an addendum note received, ?reportedly patient is status post appendectomy. Given that additional clinical history findings are likely related to acute diverticulitis. See radiology addended report. Patient informed about the addendum interpretation, possible diverticulitis. No mention of any perforation or abscess formation, no obstructive bowel changes. No surgical emergency at this time. However patient quite symptomatic with persisting nausea and difficult to control pain. Consider admission. Patient prefers admission. We will start IV Zosyn for diverticulitis treatment. Will contact hospitalist. 1840, case discussed with hospitalist who accepts patient for admission Critical Care Time Critical Care Time Critical Care Time: Yes Total Critical Care Time: 35 Attestation: The high probability of a clinically significant, sudden or life threatening deterioration of the [abdominopelvic, gastrointestinal] system(s) required my full and direct attention, intervention and personal management. The aggregate critical care time was [35] minutes. This time is in addition to time spent performing reported procedures but includes the following: [x] Data Review and interpretation [x] Patient assessment and monitoring of vital signs [x] Documentation [x] Medication orders and management Discharge Plan Departure Patient Disposition: Admitted As Inpatient Clinical Impression: Diverticulitis, History of renal calculi Admit Date/Time: 02/15/25 04:17 Admit Provider: Luigi Schmidt
--- NOTE | 2025-02-15 01:20 | DI.RAD.S_ITS ---
PROCEDURE: XR ABDOMEN 1V INDICATIONS: ?SBO TECHNIQUE: One view of the abdomen acquired. COMPARISON: [facility], CT, CT ABDOMEN PELVIS W CON, 02/15/2025, 1:23. FINDINGS: Surgical changes and devices: Cholecystectomy clips. Suture material the stomach. Bowel: Prominent stool in the right colon. No dilated loops of small bowel are identified. Soft tissues: No suspicious abdominal calcifications. Visualized solid organ contours appear normal in size. Bones: No suspicious bony lesions. Right hip arthroplasty. IMPRESSION: No dilated loops of bowel identified. Prominent stool in the right colon. Dictated by: Marcus Thomson M.D. on 02/15/2025 at 2:19 Approved by: Marcus Thomson M.D. on 02/15/2025 at 2:20
[2025-02-15 01:21] LABS: Magnesium 1.7 mg/dL (1.6-2.3)
[2025-02-15] MEDS: droPERidol 2.5 MG/ML VIAL 1.25 MG IV (01:31)
[2025-02-15 02:31] LABS: Lactate (Lactic Acid) 2.6 mmol/L (0.7-2.1)
[2025-02-15] MEDS: LACTATED RINGERS 1,000 ML 1000 ML IV (03:05)
[2025-02-15 03:54] LABS: Reflexed Lactate in 2 Hours Y
[2025-02-15 04:44] LABS: Lactate 2HR (Lactic Acid Rflx) 1.7 mmol/L (0.7-2.1)
[2025-02-15] MEDS: PIPERACILLIN/TAZO 4.5 GM in SODIUM CHLORIDE 0.9% 100 ML IV (05:10)
--- NOTE | 2025-02-15 05:33 | PM.HP.1 ---
History of Present Illness History of Present Illness Chief complaint: abd pain Narrative: 34-year-old female with past medical history of multiple abdominal surgery including x 2, appendectomy, ventral hernia repair with mesh failure and revision, cholecystectomy, lap band placement and then removal, ventral sleeve gastrectomy, neuropathy, hypothyroidism, hyperlipidemia presents with complaint of abdominal pain. Per the patient's report, the patient started to have some nausea and vomiting with abdominal pain that started this afternoon. The patient was concerned of recurrent small bowel obstruction as she did have a history with multiple abdominal surgery. The patient however denies any fever, chills, diarrhea, chest pain, shortness of breath or syncope. In the emergency room, the patient was hemodynamically stable. Labs shows WBC of 14.[address] abdomen shows signs of acute diverticulitis without abscess or perforation. The patient was given IV Zosyn and pain control. IV fluids also given. Repeat lactate normalized. [facility] Medical History (Updated 02/15/25 @ 04:28 by Dejon Castano MD) Sleep apnea BMI 50.0-59.9, adult Incomplete emptying of bladder Recurrent urinary tract infection History of post traumatic stress disorder Hx of thyroid disease Hx of osteoarthritis History of kidney stones Family history of depression History of chronic urinary tract infection History of arthritis Surgical History (Updated 07/11/24 @ 16:00 by Nellie Jackson RN) History of ankle surgery (06/08/24) Hx of arthroscopic knee surgery Hx of laparoscopic gastric banding Hx of section Hx of laparoscopy History of hip replacement Hx of hernia repair Hx of lithotripsy Hx of cholecystectomy Hx of appendectomy Family History Father Cancer Hearing impairment Hyperlipidemia Hypertension Mother Cancer Hearing impairment Hyperlipidemia Hypertension Thyroid disorder Social History marital status: number of children: 2 household members: family occupational status: employed Smoking Status: Current every day smoker alcohol intake: current caffeine: Yes Type(s) of exercise: other Meds Home Medications and Allergies Home Medications Medication Instructions Recorded Confirmed Type bupropion HCl 300 mg 24 hr tablet, 300 mg PO QAM 02/05/23 07/13/24 History extended release celecoxib 200 mg capsule (Celebrex) 200 mg PO DAILY 02/05/23 07/13/24 History gabapentin 600 mg tablet 600 mg PO BEDTIME 02/05/23 07/13/24 History levothyroxine 125 mcg capsule 250 mcg PO DAILY 02/05/23 07/13/24 History trazodone 150 mg tablet 150 mg PO DAILY 02/05/23 07/13/24 History venlafaxine 225 mg tablet,extended 225 mg PO DAILY 02/05/23 07/13/24 History release 24 hr buspirone 10 mg tablet 7.5 mg PO BID 06/08/24 07/13/24 History methylphenidate HCl 18 mg 18 mg PO QAM 06/08/24 07/13/24 History tablet,extended release 24 hr naltrexone 50 mg tablet 50 mg PO DAILY 06/08/24 07/13/24 History rosuvastatin 5 mg tablet 5 mg PO DAILY 06/08/24 07/13/24 History fexofenadine 60 mg tablet 60 mg PO BID 07/11/24 07/13/24 History ondansetron 4 mg disintegrating 4 mg PO Q8H PRN nausea and 07/13/24 Rx tablet vomiting #7 tabs oxycodone 5 mg tablet 5 mg PO Q4H PRN pain #20 tabs 07/13/24 Rx sulfamethoxazole 800 1 tab PO Q12H #28 tabs 07/13/24 Rx mg-trimethoprim 160 mg tablet (Bactrim DS) Allergies Allergy/AdvReac Type Severity Reaction Status Date / Time morphine Allergy Mild Hallucinati Verified 07/13/24 14:11 ng Review of Systems Review of Systems ROS: Yes All systems reviewed with the patient and are negative except as otherwise documented Exam Vital Signs (past 8 hours): - 02/14/25 22:18 02/15/25 00:38 02/15/25 00:39 Temperature 98.3 F Pulse Rate 65 56 L Respiratory Rate 18 Blood Pressure 170/78 H Pulse Oximetry 99 100 100 Oxygen Delivery Method Room Air 02/15/25 00:39 02/15/25 01:00 02/15/25 01:01 Temperature Pulse Rate 72 56 L Respiratory Rate Blood Pressure 188/84 H Pulse Oximetry 99 100 Oxygen Delivery Method 02/15/25 01:01 02/15/25 01:30 02/15/25 01:31 Temperature Pulse Rate 56 L Respiratory Rate Blood Pressure 190/95 H 185/81 H Pulse Oximetry 100 Oxygen Delivery Method 02/15/25 01:31 02/15/25 02:23 02/15/25 02:24 Temperature Pulse Rate 55 L 54 L Respiratory Rate Blood Pressure 204/94 H Pulse Oximetry 100 93 Oxygen Delivery Method 02/15/25 02:24 02/15/25 02:30 02/15/25 02:30 Temperature Pulse Rate 52 L 48 L Respiratory Rate Blood Pressure 197/105 H Pulse Oximetry 96 95 Oxygen Delivery Method 02/15/25 03:00 02/15/25 03:01 02/15/25 03:01 Temperature Pulse Rate 63 70 Respiratory Rate Blood Pressure 174/74 H Pulse Oximetry 92 92 Oxygen Delivery Method 02/15/25 03:30 02/15/25 03:30 02/15/25 04:00 Temperature Pulse Rate 85 Respiratory Rate Blood Pressure 168/78 H 156/75 H Pulse Oximetry 100 Oxygen Delivery Method 02/15/25 04:00 Temperature Pulse Rate 68 Respiratory Rate 18 Blood Pressure Pulse Oximetry 95 Oxygen Delivery Method Oxygen Delivery Method Room Air Narrative Exam Narrative: Physical Exam: GENERAL: The patient is not in any acute distressed. Awake and alert. HEENT: Nonicteric sclerae, PERRLA, EOMI. Oropharynx clear. Moist mucous membranes. Conjunctivae appear well perfused. HEART: Regular rate and rhythm without murmurs. No lower extremities edema. LUNGS: Clear to auscultation bilaterally. No wheezing, crackles or rhonchi ABDOMEN: Soft, positive bowel sounds, nontender. SKIN: No rash, no excessive bruising, petechiae, or purpura. NEUROLOGIC: AxO x 3. Cranial nerves II-XII intact without motor/sensory deficit. Objective Labs 02/14/25 23:25 02/14/25 22:40 Labs: Laboratory Results - last 24 hr 02/14/25 02/14/25 02/15/25 22:40 23:25 02:12 WBC 14.8 H RBC 4.78 Hgb 15.0 Hct 44.5 MCV 93.2 MCH 31.4 MCHC 33.7 RDW 14.3 Plt Count 259 Neut % (Auto) 78.4 H Lymph % (Auto) 13.4 L [place] % (Auto) 5.9 Eos % (Auto) 1.4 L Baso % (Auto) 0.9 Neut # (Auto) 19086 H Lymph # (Auto) 2000 [place] # (Auto) 900 Eos # (Auto) 200 Baso # (Auto) 100 Sodium 138 Potassium 3.6 Chloride 106 Carbon Dioxide 23 BUN 21 H Creatinine 0.76 Estimated GFR > 60 BUN/Creatinine Ratio 27.6 H Glucose 114 H Lactate 2.6 H Calcium 9.3 Magnesium 1.7 Total Bilirubin 0.4 AST 29 ALT 27 Alkaline Phosphatase 92 Total Protein 7.4 Albumin 4.2 Globulin 3.2 Albumin/Globulin Ratio 1.3 Lipase 102 02/15/25 04:18 WBC RBC Hgb Hct MCV MCH MCHC RDW Plt Count Neut % (Auto) Lymph % (Auto) [place] % (Auto) Eos % (Auto) Baso % (Auto) Neut # (Auto) Lymph # (Auto) [place] # (Auto) Eos # (Auto) Baso # (Auto) Sodium Potassium Chloride Carbon Dioxide BUN Creatinine Estimated GFR BUN/Creatinine Ratio Glucose Lactate 1.7 Calcium Magnesium Total Bilirubin AST ALT Alkaline Phosphatase Total Protein Albumin Globulin Albumin/Globulin Ratio Lipase Assessment & Plan Assessment & Plan narrative: Sepsis. Admit the patient to medical telemetry as inpatient. Source likely due to acute diverticulitis. Treat underlying infection and monitor hemodynamic with IV fluid. Acute diverticulitis. Continue IV Zosyn and monitor hemodynamics. Follow-up blood culture. Elevated lactic acid. Lactic acid 2.6. After IV fluid normalized. Continue monitor. Enc-[id number] diabetes. Subcu insulin and monitor glucose. Hypothyroidism. Resume home Synthroid. Dehydration. IV fluid. Hyperlipidemia. Resume home statin. Neuropathy. Resume home gabapentin. DVT prophylaxis heparin subcu. CODE STATUS full code. Disposition likely home in 2 days. - As the provider of this telehealth evaluation, requested by the patient's evaluating physician, I attest that I introduced myself to the patient, provided my credentials and determined that telemedicine via a real-time, 2 way interactive audio and video platform is an appropriate and effective means of providing this service. - I reviewed the patient's chart and had a discussion with the member of the patient's treatment team. - The patient and I mutually agreed with continuation of this evaluation via telemedicine. The patient consented for the telemedicine evaluation. - This virtual encounter was taken place from [place]. The encounter was approximately 35 minutes. The nurse was present during the entire time of the encounter and was able to move the stethoscope in appropriate directions. The patient was evaluated at [facility]. Time-Based Coding :: [TOTAL MINUTES] spent with patient and on the chart (including review of chart, obtaining history, exam, reviewing outside data, placing orders, documenting exam and treatment plan, and counseling patient) on [DATE].
[2025-02-15] MEDS: SODIUM CHLORIDE 0.9% 1,000 ML 100 ML IV ×2 (06:40→09:40)
[2025-02-15] MEDS: LEVOTHYROXINE 125 MCG TABLET 250 MCG PO (06:42)
[2025-02-15 08:05] LABS: Add Manual Diff / Slide Review NO; Basophils Absolute Auto 100 /uL (0-100); Basophils Percent Auto 0.5 % (0-2); Eosinophils Absolute Auto 0 /uL (0-450); Eosinophils Percent Auto 0.2 % (2-4); Hematocrit 41.4 % (36-46); Lymphocytes Absolute Auto 1200 /uL (1100-4500); Mean Corpuscular HGB Conc 33.8 % (30-36); Mean Corpuscular Hemoglobin 31.2 PG (26-34); Mean Corpuscular Volume 92.2 fL (80-100); Monocytes Absolute Auto 500 /uL (0-900); Monocytes Percent Auto 3.6 % (3-14); Neutrophils Absolute Auto 11100 /uL (1500-7000); Neutrophils Percent Auto 86.7 % (50-75); Platelet Count 274 X10^3/uL (150-400); Red Blood Cell Count 4.49 X10^6/uL (4.0-5.2); Red Cell Distribution Width 14.1 % (11.6-14.8); White Blood Cell Count 12.9 X10^3/uL (4.5-11.0)
[2025-02-15 08:18] LABS: Blood Urea Nitrogen 18 mg/dL (7-17); Calcium 9.1 mg/dL (8.4-10.2); Carbon Dioxide 23 mmol/L (22-32); Chloride 107 mmol/L (98-107); Estimated Glomerular Filt Rate > 60 mL/min (>60); Glucose 118 mg/dL (70-99); HEMOLYSIS < 15 (0-50); Potassium 3.8 mmol/L (3.4-5.1); Sodium 140 mmol/L (137-145)
[2025-02-15] MEDS: PIPERACILLIN/TAZO 3.375 GM in SODIUM CHLORIDE 0.9% 100 ML IV (09:35)
[2025-02-15] MEDS: VENLAFAXINE ER 75 MG CAP 225 MG PO (09:40)
[2025-02-15] MEDS: HEPARIN 5,000 UNIT/ML VIAL 5000 UNIT SUBCUT (09:41)
[2025-02-15] MEDS: buPROPion XL 150 MG TAB 300 MG PO (09:41)
--- NOTE | 2025-02-15 11:48 | P.DS_ITS ---
History of Present Illness History of Present Illness Date Patient Seen: 02/15/25 Time Patient Seen: 11:48 Chief complaint: abd pain Narrative: Per admitting provider: 34-year-old female with past medical history of multiple abdominal surgery including x 2, appendectomy, ventral hernia repair with mesh failure and revision, cholecystectomy, lap band placement and then removal, ventral sleeve gastrectomy, neuropathy, hypothyroidism, hyperlipidemia presents with complaint of abdominal pain. Per the patient's report, the patient started to have some nausea and vomiting with abdominal pain that started this afternoon. The patient was concerned of recurrent small bowel obstruction as she did have a history with multiple abdominal surgery. The patient however denies any fever, chills, diarrhea, chest pain, shortness of breath or syncope. In the emergency room, the patient was hemodynamically stable. Labs shows WBC of 14.[address] abdomen shows signs of acute diverticulitis without abscess or perforation. The patient was given IV Zosyn and pain control. IV fluids also given. Repeat lactate normalized. Discharge Providers Provider Date of admission: 02/15/25 04:17 Discharge Date: 02/15/25 Discharge provider: Tod Perez DO Summary Hospital Course Discharge Diagnosis: 1. Hernia sac inflammation, possible intermittent strangulation of ventral hernia, rule out diverticulitis 2. Obesity, BMI 49.6 3. Chronic hypothyroidism 4. HLD chronic Hospital Course: This is a 54 year old female with multiple prior abdominal surgeries who presented with nausea, vomiting, and abdominal pain. Overnight radiology read was initially noted to have possible appendicitis, however patient had prior appendectomy, then addended to possible diverticulitis. She had mild leukocytosis and was admitted for antibiotics for presumed diverticulitis. The read from the final radiologist was notable for no diverticulitis, but did note mild stranding in the fat within the hernia sac...This could be due to edema or inflammation or intermittent herniated fat strangulation. The following afternoon her abdominal pain and nausea had resolved, and she was tolerating a diet. Her WBC count had improved to 12 from 15. Given her improvement on antibiotics, she was discharged on oral augmentin for possible diverticular disease and uncertain etiology at this time. Suspect the most likely etiology was a transient episode of strangulation possibly in a fold, which then subsequently resolved spontaneously. Given the large size of her hernia, unclear etiology, and improvement in symptoms general surgery was not consulted at this time. Time Spent with Patient Time spent: Less than 30 minutes Exam Vital Signs (past 8 hours): - 02/15/25 04:00 02/15/25 04:00 02/15/25 04:30 Temperature Pulse Rate 68 80 Respiratory Rate 18 Blood Pressure 156/75 H Pulse Oximetry 95 96 Oxygen Flow Rate 02/15/25 05:00 02/15/25 05:30 02/15/25 06:00 Temperature Pulse Rate 69 77 64 Respiratory Rate Blood Pressure Pulse Oximetry 98 99 99 Oxygen Flow Rate 02/15/25 06:30 02/15/25 06:46 02/15/25 06:46 Temperature Pulse Rate 72 100 H Respiratory Rate Blood Pressure 132/65 Pulse Oximetry 99 98 Oxygen Flow Rate 02/15/25 07:00 02/15/25 07:30 02/15/25 08:20 Temperature 98.5 F Pulse Rate 73 78 80 Respiratory Rate 20 Blood Pressure 134/64 Pulse Oximetry 99 97 95 Oxygen Flow Rate 02/15/25 08:21 02/15/25 08:21 02/15/25 09:10 Temperature 97.6 F Pulse Rate 74 86 Respiratory Rate 16 Blood Pressure 134/64 128/56 L Pulse Oximetry 96 96 Oxygen Flow Rate 0 Oxygen Delivery Method Room Air Oxygen Flow Rate 0 Narrative Exam Narrative: Gen: obese female, BMI 49.6, no acute distress CV: RRR Abd: Soft, large R ventral hernia, no tenderness, no distension Ext: No edema Objective Labs 02/15/25 07:54 02/15/25 07:54 Labs: Laboratory Results - last 24 hr 02/14/25 02/14/25 02/15/25 22:40 23:25 02:12 WBC 14.8 H RBC 4.78 Hgb 15.0 Hct 44.5 MCV 93.2 MCH 31.4 MCHC 33.7 RDW 14.3 Plt Count 259 Neut % (Auto) 78.4 H Lymph % (Auto) 13.4 L [place] % (Auto) 5.9 Eos % (Auto) 1.4 L Baso % (Auto) 0.9 Neut # (Auto) 09822 H Lymph # (Auto) 2000 [place] # (Auto) 900 Eos # (Auto) 200 Baso # (Auto) 100 Sodium 138 Potassium 3.6 Chloride 106 Carbon Dioxide 23 BUN 21 H Creatinine 0.76 Estimated GFR > 60 BUN/Creatinine Ratio 27.6 H Glucose 114 H Lactate 2.6 H Calcium 9.3 Magnesium 1.7 Total Bilirubin 0.4 AST 29 ALT 27 Alkaline Phosphatase 92 Total Protein 7.4 Albumin 4.2 Globulin 3.2 Albumin/Globulin Ratio 1.3 Lipase 102 02/15/25 02/15/25 04:18 07:54 WBC 12.9 H RBC 4.49 Hgb 14.0 Hct 41.4 MCV 92.2 MCH 31.2 MCHC 33.8 RDW 14.1 Plt Count 274 Neut % (Auto) 86.7 H Lymph % (Auto) 9.0 L [place] % (Auto) 3.6 Eos % (Auto) 0.2 L Baso % (Auto) 0.5 Neut # (Auto) 37514 H Lymph # (Auto) 1200 [place] # (Auto) 500 Eos # (Auto) 0 Baso # (Auto) 100 Sodium 140 Potassium 3.8 Chloride 107 Carbon Dioxide 23 BUN 18 H Creatinine 0.72 Estimated GFR > 60 BUN/Creatinine Ratio 25.0 H Glucose 118 H Lactate 1.7 Calcium 9.1 Magnesium Total Bilirubin AST ALT Alkaline Phosphatase Total Protein Albumin Globulin Albumin/Globulin Ratio Lipase PFSH Medical History (Updated 02/15/25 @ 09:17 by Elizabeth Lopez RN) Sleep apnea BMI 50.0-59.9, adult Incomplete emptying of bladder Recurrent urinary tract infection History of post traumatic stress disorder Hx of thyroid disease Hx of osteoarthritis History of kidney stones Family history of depression History of chronic urinary tract infection History of arthritis Surgical History (Updated 07/11/24 @ 16:00 by Nellie Jackson RN) History of ankle surgery (06/08/24) Hx of arthroscopic knee surgery Hx of laparoscopic gastric banding Hx of section Hx of laparoscopy History of hip replacement Hx of hernia repair Hx of lithotripsy Hx of cholecystectomy Hx of appendectomy Family History Father Cancer Hearing impairment Hyperlipidemia Hypertension Mother Cancer Hearing impairment Hyperlipidemia Hypertension Thyroid disorder Social History marital status: number of children: 2 household members: family occupational status: employed Smoking Status: Current every day smoker alcohol intake: current caffeine: Yes Type(s) of exercise: other Discharge Plan Discharge Plan Patient Disposition: Home Provider Discharge Comment: You were admitted to the hospital with concern for diverticulitis, a likely over-read with night radiologist. Given improvement, continue 1 more week of antibiotics. No dietary restrictions are necessary. Discharge orders & Medications Prescriptions: New amoxicillin-pot clavulanate 875-125 mg tablet 1 tab PO BID 7 Days Qty: 14 0RF Continued levothyroxine 125 mcg capsule 200 mcg PO DAILY bupropion HCl 300 mg tablet extended release 24 hr 300 mg PO QAM venlafaxine 225 mg tablet extended release 24hr 225 mg PO DAILY gabapentin 600 mg tablet 600 mg PO BEDTIME trazodone 150 mg tablet 150 mg PO DAILY celecoxib [Celebrex] 200 mg capsule 200 mg PO DAILY naltrexone 50 mg tablet 50 mg PO DAILY buspirone 10 mg Tablet 7.5 mg PO BID methylphenidate HCl 18 mg tablet extended release 24hr 18 mg PO QAM rosuvastatin 5 mg tablet 5 mg PO DAILY fexofenadine 60 mg Tablet 60 mg PO BID venlafaxine 150 mg capsule,extended release 24hr 150 mg PO DAILY trazodone 150 mg tablet 150 mg PO ONCE PM omeprazole 20 mg Capsule,Delayed Release(Dr/Ec) 20 mg PO DAILY Discharge Health Status Multidrug resistant organism: No MDRO Diet/Activity/Treatments Diet: Diet as Tolerated and Regular Activity: As tolerated no restrictions Visit Report/Discharge Packet Stand Alone Forms: Patient Portal/API, Stroke Signs & Symptoms
--- NOTE | 2025-02-15 12:51 | PC.NURSE ---
D/c teaching done at bedside with patient. Patient states understanding of antibx treatment at home. Pt iv still in, awaiting completion of running antibiotic prior to d/c home. Daughter to come and escort patient home.
--- NOTE | 2025-02-15 14:08 | PC.NURSE ---
Day shift: Discharge instructions gone over with patient by FERNANDO Dean. All questions answered, patient stated understanding. PIV removed prior to discharge. All belongings with patient. FERNANDO Andrade V escorted patient to exit via wheelchair where patient's daughter plans to take her home.
== END 2025-02-15 14:09 | disposition home or self-care (01) ==
LOC: ED 02-15 04:09 → AC 02-15 04:42
PROVIDERS: Internal Medicine; Admitting Provider Internal Medicine; Emergency Provider Emergency Medicine; Referring Provider Emergency Medicine; Visit Provider Internal Medicine
DX: K43.9 Ventral hernia without obstruction or gangrene (principal); Z68.42 Body mass index [BMI] 45.0-49.9, adult; E66.01 Morbid (severe) obesity due to excess calories; E03.9 Hypothyroidism, unspecified; E78.5 Hyperlipidemia, unspecified; Z90.49 Acquired absence of other specified parts of digestive tract; R74.02 Elevation of levels of lactic acid dehydrogenase [LDH]; E86.0 Dehydration; E11.40 Type 2 diabetes mellitus with diabetic neuropathy, unspecified; Z87.440 Personal history of urinary (tract) infections; Z98.84 Bariatric surgery status; Z96.649 Presence of unspecified artificial hip joint; F17.290 Nicotine dependence, other tobacco product, uncomplicated; Z83.49 Family history of other endocrine, nutritional and metabolic diseases; Z98.891 History of uterine scar from previous surgery; Z98.890 Other specified postprocedural states; Z79.1 Long term (current) use of non-steroidal anti-inflammatories (NSAID); Z79.890 Hormone replacement therapy; Z88.5 Allergy status to narcotic agent
CPT/HCPCS: 36415; 74018; 74177; 80048; 80053; 83605; 83690; 83735; 85025; 87040; 93005; 96361; 96365; 96366; 96372; 96375; 96376; 99284; 99285; 99291; G0378; J1171; J1644; J1790; J2543; J2765; Q9967